=== PATIENT | female | born 1935 | race Caucasian/White ===

== ENCOUNTER 2020-09-22 14:39 | Emergency (ER) | payer MEDICARE, SELFPAY ==
[~2020-09-22 14:39] MED LIST: ARICEPT10 MG PO; BYSTOLIC5 MG PO; COLACE 100MG C100 MG PO; IBU400 MG PO; JANUVIA100 MG PO; LORTAB 5-325 M1 EACH PO; NAMENDA5 MG PO; NORVASC 5 MG TAB5 MG PO; OMEPRAZOLE20 MG PO; PERCOCET 5-3251 EACH PO; PROZAC40 MG PO; VESICARE5 MG PO; XANAX0.5 MG PO; ZOCOR20 MG PO; ZOFRAN4 MG PO
[2020-09-22] MEDS ORDERED: HYDROCODON-ACE1 EAC4 PO (20:47)
== END 2020-09-22 20:50 | disposition home or self-care (01) ==
LOC: ER1 14:39
DX: S32.592A Other specified fracture of left pubis, initial encounter for closed fracture (principal); G89.29 Other chronic pain; E11.9 Type 2 diabetes mellitus without complications; I10 Essential (primary) hypertension; Z91.81 History of falling; W19.XXXA Unspecified fall, initial encounter
CPT/HCPCS: 72131; 72192; 99283

== ENCOUNTER 2020-11-24 14:39 | Emergency (ER) | payer MEDICARE ==
[~2020-11-24 14:39] MED LIST changes: +HYDROCODON-ACE1 EAC4 PO
[2020-11-24 16:49] LABS: HEMOGLOBIN 12.4 gm/dl (12.3-15.3); RED BLOOD COUNT 4.08 M/UL (4.00-5.10); WHITE BLOOD COUNT 7.8 K/UL (4.5-11.0)
[2020-11-24 17:10] LABS: BUN/CREATININE RATIO 23 (0-10)
== END 2020-11-24 20:25 | disposition home or self-care (01) ==
LOC: ER1 14:39
PROVIDERS: Physician Assistant
DX: S09.90XA Unspecified injury of head, initial encounter (principal); S33.5XXA Sprain of ligaments of lumbar spine, initial encounter; S13.4XXA Sprain of ligaments of cervical spine, initial encounter; S70.01XA Contusion of right hip, initial encounter; S40.021A Contusion of right upper arm, initial encounter; I10 Essential (primary) hypertension; E11.9 Type 2 diabetes mellitus without complications; Z88.0 Allergy status to penicillin; W18.30XA Fall on same level, unspecified, initial encounter; Y92.009 Unspecified place in unspecified non-institutional (private) residence as the place of occurrence of the external cause
CPT/HCPCS: 36415; 70450; 72125; 72131; 72170; 73060; 80053; 81001; 82550; 82553; 83874; 84484; 85025; 93005; 99284; J7030

== ENCOUNTER → 2020-12-11 | Outpatient (CLI) | payer MEDICARE | LOC: KOH-I 10:00 | DX: G30.1 Alzheimer's disease with late onset (principal); R42 Dizziness and giddiness; R29.6 Repeated falls; G31.9 Degenerative disease of nervous system, unspecified; R90.82 White matter disease, unspecified | CPT/HCPCS: 70551 ==

== ENCOUNTER 2022-01-29 20:40 | Inpatient (IN) | payer MEDICARE, MEDICAID ==
[~2022-01-29] VITALS: Ht 167.6 cm; Wt 61.2 kg
[~2022-01-29 20:40] MED LIST changes: +NAMENDA10 MG PO; -NAMENDA5 MG PO
[2022-01-29 21:42] LABS: HEMOGLOBIN 12.3 gm/dl (12.3-15.3); RED BLOOD COUNT 4.03 M/UL (4.00-5.10); WHITE BLOOD COUNT 9.6 K/UL (4.5-11.0)
[2022-01-29 22:07] LABS: BUN/CREATININE RATIO 20 (0-10)
[2022-01-30 08:59] LABS: HEMOGLOBIN 11.5 gm/dl (12.3-15.3); RED BLOOD COUNT 3.79 M/UL (4.00-5.10); WHITE BLOOD COUNT 10.7 K/UL (4.5-11.0)
[2022-01-30 09:19] LABS: BUN/CREATININE RATIO 18 (0-10)
[2022-01-30] MEDS ORDERED: OMEPRAZOLE20 MG PO (15:44)
[2022-01-30] MEDS ORDERED: LOTRISONE CREAM15 GM TOP (15:49)
[2022-01-30] MEDS ORDERED: ASMANEX HFA13 G2 (15:50)
[2022-01-30] MEDS ORDERED: OMEGA-31000 MG PO (15:51)
[2022-01-30] MEDS ORDERED: MULTIVITAMIN1 EACH PO (15:52)
[2022-01-30] MEDS ORDERED: VITAMIN D3125 MCG PO (15:52)
[2022-01-30] MEDS ORDERED: VITAMIN E400 UNI4 PO (15:53)
[2022-01-31 03:03] LABS: HEMOGLOBIN 11.2 gm/dl (12.3-15.3); RED BLOOD COUNT 3.74 M/UL (4.00-5.10); WHITE BLOOD COUNT 11.3 K/UL (4.5-11.0)
[2022-01-31 03:47] LABS: BUN/CREATININE RATIO 21 (0-10)
[2022-02-01 03:02] LABS: HEMOGLOBIN 10.4 gm/dl (12.3-15.3); RED BLOOD COUNT 3.47 M/UL (4.00-5.10); WHITE BLOOD COUNT 11.2 K/UL (4.5-11.0)
[2022-02-01 03:16] LABS: BUN/CREATININE RATIO 25 (0-10)
[2022-02-02 03:01] LABS: HEMOGLOBIN 11.1 gm/dl (12.3-15.3); RED BLOOD COUNT 3.75 M/UL (4.00-5.10)
[2022-02-02 03:06] LABS: WHITE BLOOD COUNT 15.4 K/UL (4.5-11.0)
[2022-02-02 04:02] LABS: BUN/CREATININE RATIO 21 (0-10)
[2022-02-03 06:10] LABS: HEMOGLOBIN 11.2 gm/dl (12.3-15.3); RED BLOOD COUNT 3.73 M/UL (4.00-5.10)
[2022-02-03 06:13] LABS: WHITE BLOOD COUNT 11.3 K/UL (4.5-11.0)
[2022-02-03 06:31] LABS: BUN/CREATININE RATIO 19 (0-10)
[2022-02-04 04:26] LABS: HEMOGLOBIN 11.1 gm/dl (12.3-15.3); RED BLOOD COUNT 3.75 M/UL (4.00-5.10)
[2022-02-04 04:38] LABS: WHITE BLOOD COUNT 8.1 K/UL (4.5-11.0)
[2022-02-04 05:16] LABS: BUN/CREATININE RATIO 18 (0-10)
[2022-02-04] MEDS ORDERED: ROBITUSSIN DM UD5 ML PO (10:15)
[2022-02-04] MEDS ORDERED: IPRAT-ALBUT 0.5-3 ML NEB (10:15)
[2022-02-04] MEDS ORDERED: OMNICEF 300 MG300 MG PO (10:16)
--- NOTE | 2022-02-05 13:04 | NUR ---
PATIENT TAKEN OFF O2, HER HANDS ARE COOL, I WARMED HER HANDS AND CHECKED HER OXYGEN CONTINUOUSLY SHE NEVER WENT BELOW 92% ON ROOM AIR. AFTER 1 HOUR WITHOUT OXYGEN SHE IS 93%.
[2022-02-06 09:05] LABS: WHITE BLOOD COUNT 8.2 K/UL (4.5-11.0)
[2022-02-06 09:09] LABS: RED BLOOD COUNT 4.18 M/UL (4.00-5.10)
[2022-02-06 09:41] LABS: BUN/CREATININE RATIO 20 (0-10)
[2022-02-07 04:14] LABS: HEMOGLOBIN 11.8 gm/dl (12.3-15.3); RED BLOOD COUNT 3.92 M/UL (4.00-5.10); WHITE BLOOD COUNT 7.9 K/UL (4.5-11.0)
[2022-02-07 04:30] LABS: BUN/CREATININE RATIO 19 (0-10)
--- NOTE | 2022-02-07 13:19 | NUR ---
REPORT CALLED TO [facility]. SPOKE WITH RYAN
== END 2022-02-07 13:00 | disposition home health service (06) | DRG 193 ==
LOC: ER1 20:40 → CDU 01-30 07:38 → MED SURG 4 01-30 07:38
PROVIDERS: Internal Medicine; Student in an Organized Health Care Education/Training Program; ADMIT Family Medicine
PROC: B24BZZZ Ultrasonography of Heart with Aorta (ICD-10-PCS; principal; 2022-02-01)
DX: J15.9 Unspecified bacterial pneumonia (principal); J96.01 Acute respiratory failure with hypoxia; Z20.822 Contact with and (suspected) exposure to COVID-19; E11.9 Type 2 diabetes mellitus without complications; E87.6 Hypokalemia; I10 Essential (primary) hypertension; E78.5 Hyperlipidemia, unspecified; K21.9 Gastro-esophageal reflux disease without esophagitis; F01.50 Vascular dementia, unspecified severity, without behavioral disturbance, psychotic disturbance, mood disturbance, and anxiety; J45.909 Unspecified asthma, uncomplicated; I45.10 Unspecified right bundle-branch block; F03.90 Unspecified dementia, unspecified severity, without behavioral disturbance, psychotic disturbance, mood disturbance, and anxiety; Z90.49 Acquired absence of other specified parts of digestive tract; Z90.710 Acquired absence of both cervix and uterus; Z88.0 Allergy status to penicillin; Z88.8 Allergy status to other drugs, medicaments and biological substances; Z80.0 Family history of malignant neoplasm of digestive organs
CPT/HCPCS: ECHO; 0240U; 36415; 36600; 71045; 71046; 80048; 80053; 81001; 82550; 82553; 82803; 82962; 83605; 83735; 83880; 84100; 84484; 85025; 85027; 87040; 87086; 93005; 93306; 94640; 94664; 94760; 96374; 96375; 96376; 97110-GP-CQ; 97116; 97116-GP-CQ; 97162; 97165; 97530-GP-CQ; 99285; J0456; J0696; J1650; J1940; J7030; J7050

== ENCOUNTER 2022-03-13 13:23 | Emergency (ER) | payer MEDICARE ==
[~2022-03-13 13:23] MED LIST changes: +ASMANEX HFA13 G2; +IPRAT-ALBUT 0.5-3 ML NEB; +LOTRISONE CREAM15 GM TOP; +MULTIVITAMIN1 EACH PO; +OMEGA-31000 MG PO; +OMNICEF 300 MG300 MG PO; +ROBITUSSIN DM UD5 ML PO; +VITAMIN D3125 MCG PO; +VITAMIN E400 UNI4 PO
[2022-03-13 13:54] LABS: HEMOGLOBIN 11.4 gm/dl (12.3-15.3); RED BLOOD COUNT 3.88 M/UL (4.00-5.10); WHITE BLOOD COUNT 10.3 K/UL (4.5-11.0)
[2022-03-13 14:14] LABS: BUN/CREATININE RATIO 14 (0-10)
[2022-03-13] MEDS ORDERED: DOXYCYCLINE HY100 MG PO (15:41)
[2022-03-13] MEDS ORDERED: PROAIR HFA8.5 GM INH (15:42)
== END 2022-03-13 16:35 | disposition home or self-care (01) ==
LOC: ER1 13:23
DX: R05.9 Cough, unspecified (principal); R00.1 Bradycardia, unspecified
CPT/HCPCS: 71045; 80053; 82550; 82553; 83880; 84484; 85025; 93005; 99284